=== PATIENT | female | born 1980 | race Caucasian/White ===

== ENCOUNTER 2017-07-14 18:10 | Emergency (ER) | payer SELFPAY ==
[2017-07-14 18:16] VITALS: BP 116/76; BMI 28.0
--- NOTE | 2017-07-14 21:04 | DR.GENAD ---
HPI - PCP Primary Care Physician: MAYTE - Complaint/Symptoms Chief Complaint Doctors Comments: Patient presents with complaint of ruptured cyst on the left inguinal area medially on yesterday. Today to area is tender. There is no drainage. Chief Complaint:: PATIENT STATED THAT SHE HAD SURGERY 12 YEARS AGO AND WHERE IT WAS A CYST CAME UP AND IT BUSTED YESTERDAY. THE CYST IS LOCATED ON THE TOP OF THE VAGINA - Source History Provided: Patient - Mode of Arrival Mode of Arrival: Ambulatory - Timing Onset of Chief Complaint: 07/13/17 PMH - PMH Past Medical History: Yes Past Medical History: Anxiety, Asthma, Coronary Artery Disease, Depression, Hypertension, Hypothyroidism Past Surgical History: Yes Surgical History: , SOFTWARE [employer] Surgery, Other - Family History History of Family Medical Conditions: No - Social History Does patient currently use any type of tobacco product: Yes Have you used tobacco products in the last 12 months: Yes Type of Tobacco Use: Cigarettes Does any household member use tobacco: No Alcohol Use: None Lives With: Family Lives Where: Home - infectious screening In the last 2 months have you had wt loss of >10#?: NO Have you had fever, night sweats or hemotysis?: No Have you traveled outside the country in the last 6 months?: No Isolation: Standard ROS - Review of Systems Eyes: No Symptoms Reported ENTM: No Symptoms Reported Respiratoy: No Symptoms Reported Cardiovascular: No Symptoms Reported Gastrointestinal/Abdominal: No Symptoms Reported Genitourinary: No Symptoms Reported Neurological: No Symptoms Reported Musculoskeletal: No Symptoms Reported Integumentary: No Symptoms Reported Hematologic/Lymphatic: No Symptoms Reported Endocrine: No Symptoms Reported Psychiatric: No Symptoms Reported All Other Systems: Reviewed and Negative PE - Vital Signs Vitals: Temperature 98.3 F Pulse Rate 97 Respiratory Rate 20 Blood Pressure 116/76 O2 Sat by Pulse Oximetry 99 - General Limitations: No Limitations General Appearance: Alert, In No Apparent Distress - Head Head Exam: Normal Inspection, Atraumatic - Eyes Eye exam: Normal Appearance, PERRL, EOMI - ENT ENT Exam: Normal Exam External Ear Exam: Normal External Inspection TM/Canal Exam: Bilateral Normal Nose Exam: Normal Nose Exam, Sinus Tenderness Throat Exam: negative: Tonsillar Exudate, Muffled Voice - Neck Neck Exam: Normal Inspection - Chest Chest Inspection: Normal Inspection - Respiratory Respiratory Exam: Normal Lung Sounds Bilat Respiratory Exam: Bilateral Clear to Auscultation - Cardiovascular Cardiovascular Exam: Regular Rate - Abdominal Exam Abdominal Exam: Normal Inspection Abdominal Tenderness: negative: RUQ, RLQ, LUQ, LLQ, Epigastrium, Suprapubic, Diffuse, Mild, Moderate, Severe, Other - Extremities Extremities Exam: Normal Inspection, Other (Left inguinal area mid way area of tenderness per patient to nurse who examined her. There was no visible area of erythema) - Back Back Exam: Normal Inspection - Neurologic Neurological Exam: Alert, Oriented X3, CN II-XII Intact - Psychiatric Psychiatric Exam: Normal Affect, Normal Mood - Skin Skin Exam: Warm, Dry, Intact - Diagnosis Discharge Problem: Inguinal lymphadenopathy - Discharge Plan Condition: Stable - Follow ups/Referrals Follow ups/Referrals: MUSA HU [Primary Care Provider] - 3 days - Instructions
== END 2017-07-14 21:37 | disposition home or self-care (01) ==
LOC: ER 18:20
DX: R59.0 Localized enlarged lymph nodes (principal)
CPT/HCPCS: 99281; 99282